=== PATIENT | male | born 1990 | race Caucasian/White ===

== ENCOUNTER 2021-02-05 17:59 | Emergency (ER) | payer OTHER, SELFPAY ==
[2021-02-05 18:18] VITALS: BP 131/79; PULSE 80; RESP 18; TEMP 36.7; O2SAT 100; BMI 35.9
[2021-02-05 18:27] LABS: Glucose, Whole Blood 106 mg/dL (60-115)
== END 2021-02-05 20:50 | disposition left against medical advice (07) ==
LOC: HO.ED 20:45
PROVIDERS: Emergency Provider Emergency Medicine; PCP Internal Medicine
DX: R42 Dizziness and giddiness (principal)
CPT/HCPCS: 82947; 99282

== ENCOUNTER 2022-04-04 16:52 | Emergency (ER) | payer OTHER, SELFPAY ==
--- NOTE | 2022-04-04 | ECG_ITS ---
Test Reason : CHEST PAIN Blood Pressure : / mmHG Vent. Rate : 079 BPM Atrial Rate : 079 BPM P-R Int : 154 ms QRS Dur : 074 ms QT Int : 354 ms P-R-T Axes : 036 033 038 degrees QTc Int : 405 ms Normal sinus rhythm Normal ECG No previous ECGs available Referred By: Generic ED Physician Electronically Signed By:VERONICA SUN MD
[2022-04-04 17:02] VITALS: BP 130/79; PULSE 89; RESP 20; TEMP 36.7; O2SAT 98; BMI 29.5
--- NOTE | 2022-04-04 17:17 | PC.NURSE ---
patient reported he felt left side chest pain in triage, ekg ordered.
[2022-04-04 17:31] LABS: MANUAL DIFF FLAG NO
[2022-04-04 17:36] LABS: Basophils Percent Auto 0.3 % (0-2); Eosinophils Percent Auto 0.6 % (0-4); Hematocrit 48.2 % (42.0-52.0); Hemoglobin 15.7 g/dl (14.0-18.0); Imm Gran Abs Auto 0.04 X10*3/uL (0.00-0.03); Imm Gran Pct Auto 0.6 % (0.0-0.4); Lymphocytes Absolute Auto 2.4 X10*3/uL (1.2-4.9); Mean Corpuscular HGB Conc 32.6 g/dl (31.0-36.0); Mean Corpuscular Hemoglobin 28.1 pg (27.0-33.0); Mean Corpuscular Volume 86.4 fL (80.0-98.0); Monocytes Absolute Auto 0.4 X10*3/uL (0.1-1.2); Monocytes Percent Auto 6.6 % (2-11); Neutrophils Absolute Auto 3.7 x10*3/uL (2.0-8.3); Neutrophils Percent Auto 55.9 % (45-73); Platelet Count 183 X10*3/uL (160-400); Red Blood Count 5.58 X10*6/uL (4.60-5.80); Red Cell Distribution Width 12.9 % (11.0-16.0); White Blood Count 6.6 X10*3/uL (4.8-10.8)
[2022-04-04 18:01] LABS: Anion Gap 18 (12-20); Blood Urea Nitrogen 20 mg/dL (9-16); Carbon Dioxide 24 mmol/L (22-29); Chloride 104 mmol/L (96-108); Creatinine Clr Calc Pharmacy 112.4; Estimated Glomerular Filt Rate > 60; Glucose Random 98 mg/dL (60-115); Potassium 4.6 mmol/L (3.3-5.1); Sodium 141 mmol/L (135-145)
[2022-04-04 18:08] LABS: Troponin-I High Sensitivity < 3.5 ng/L (<3.5-35.0)
== END 2022-04-04 23:08 | disposition left against medical advice (07) ==
PROVIDERS: Emergency Provider Emergency Medicine
DX: R42 Dizziness and giddiness (principal); R51.9 Headache, unspecified; R07.89 Other chest pain; Z79.899 Other long term (current) drug therapy
CPT/HCPCS: 36415; 80048; 84484; 85025; 93005; 99281; 99283

== ENCOUNTER 2022-04-12 20:19 | Emergency (ER) | payer OTHER, SELFPAY ==
--- NOTE | 2022-04-12 20:21 | ECG_ITS ---
Test Reason : CHEST PAIN Blood Pressure : / mmHG Vent. Rate : 068 BPM Atrial Rate : 068 BPM P-R Int : 144 ms QRS Dur : 076 ms QT Int : 372 ms P-R-T Axes : -05 018 023 degrees QTc Int : 395 ms Normal sinus rhythm Normal ECG When compared with ECG of 04-APR-2022 17:27, No significant change was found Referred By: Generic ED Physician Electronically Signed By:VERONICA SUN MD
[2022-04-12 21:12] VITALS: BP 129/80; PULSE 96; RESP 16; TEMP 36.6; O2SAT 97; BMI 30.4
--- NOTE | 2022-04-12 23:46 | PC.NURSE ---
pt called 3 times and not in the waiting area.
== END 2022-04-13 00:25 | disposition left against medical advice (07) ==
LOC: HO.ED 04-13 00:23
PROVIDERS: Emergency Provider Emergency Medicine
DX: R07.9 Chest pain, unspecified (principal)
CPT/HCPCS: 93005; 99283